=== PATIENT | female | born 1945 | race Caucasian/White ===

== ENCOUNTER 2025-07-20 14:35 | Inpatient (IN) ==
[2025-07-20] MEDS ORDERED: IPRATROPIUM/ALBUTEROL 3 ML AMPUL.NEB NEB PRN ×2 (15:46→18:13)
[2025-07-20] MEDS ORDERED: DEXTROSE 50% 50 ML VIAL IV PRN (15:46)
[2025-07-20] MEDS ORDERED: hydrALAZINE 20 MG/ML VIAL IV PRN (15:46)
[2025-07-20] MEDS ORDERED: KETOROLAC 30 MG/ML VIAL IV PRN (15:46)
[2025-07-20] MEDS ORDERED: ONDANSETRON 4 MG/2 ML VIAL IV PRN ×2 (15:46→18:13)
[2025-07-20] MEDS ORDERED: DEXTROSE 31 GM ORAL.SUSP PO PRN (15:46)
[2025-07-20 16:37] LABS: POC Blood Urea Nitrogen 16.0 (6-20); POC CO2 21.0 (22-30); POC Calcium, Ionized 1.08 (1.16-1.32); POC Glucose, Random 216.0 (70-105)
[2025-07-20] MEDS ORDERED: PROPOFOL 200 MG/20 ML VIAL IV ONE (16:46)
[2025-07-20] MEDS ORDERED: fentaNYL 100 MCG/2 ML VIAL ONE (16:46)
[2025-07-20] MEDS ORDERED: LIDOCAINE 2% PF 5 ML VIAL ONE (16:47)
[2025-07-20] MEDS ORDERED: ONDANSETRON 4 MG/2 ML VIAL ONE (16:47)
[2025-07-20] MEDS ORDERED: GLYCOPYRROLATE 0.2 MG/ML VIAL IV ONE (16:47)
[2025-07-20] MEDS ORDERED: DEXAMETHASONE 10 MG/ML VIAL ONE (16:47)
[2025-07-20] MEDS: PIPERACILLIN SODIUM/TAZOBACTAM 3.375 GM in DEXTROSE 5% IN WATER 50 ML IV ONE (17:18)
[2025-07-20] MEDS ORDERED: PHENYLephrine 1 MG/10 ML SYRINGE (ANEST) ONE (17:40)
[2025-07-20] MEDS: IOVERSOL 50 ML VIAL IV ONE (17:45)
[2025-07-20] MEDS: LIDOCAINE 2% URO-JET 10 ML JEL.PF.APP UR ONE (17:50)
[2025-07-20] MEDS ORDERED: fentaNYL 100 MCG/2 ML VIAL IV PRN (18:13)
[2025-07-20] MEDS: 0.9 % SODIUM CHLORIDE 1,000 ML IV SCH (18:52)
[2025-07-20] MEDS: LACTATED RINGERS 1,000 ML IV SCH (18:53)
[2025-07-20] MEDS: INSULIN LISPRO 1 UNIT/0.01 ML UNIT SQ SCH (18:53)
[2025-07-20] MEDS: SENNOSIDES 1 TABLET PO SCH (21:11)
[2025-07-20] MEDS: PIPERACILLIN SODIUM/TAZOBACTAM 3.375 GM in DEXTROSE 5% IN WATER 100 ML IV SCH (21:11)
[2025-07-20] MEDS: DOCUSATE SODIUM 100 MG CAPSULE PO SCH (21:11)
[2025-07-20] MEDS: 0.9 % SODIUM CHLORIDE 10 ML SYRINGE IV SCH (21:12)
[2025-07-21 07:14] LABS: Basophils # (Auto) 0.02 K/mcL (0.00-0.30); Basophils % (Auto) 0.1 % (0.0-2.0); Eosinophils # (Auto) 0 K/mcL (0.00-0.70); Eosinophils % (Auto) 0 % (0.0-7.0); Hematocrit 43.0 % (34.1-44.9); Hemoglobin 13.7 g/dL (11.2-15.7); Lymphocytes # (Auto) 1.13 K/mcL (1.50-4.80); Lymphocytes % (Auto) 7.4 % (15.5-49.0); Mean Corpuscular HGB Conc 31.9 g/dL (31.0-36.0); Monocytes # (Auto) 0.28 K/mcL (0.10-0.90); Monocytes % (Auto) 1.8 % (1.0-12.0); Neutrophils % (Auto) 90.3 % (38.0-78.0); Platelet Count 181 K/mcL (140-440); RBC 4.66 M/mcL (3.59-5.38); WBC 15.2 K/mcL (4.5-11.0)
[2025-07-21 07:42] LABS: Anion Gap 8.0 (8.0-16.0); Blood Urea Nitrogen 15 mg/dL (8-23); Calcium 8.2 mg/dL (8.6-10.4); Carbon Dioxide 23 mmol/L (22-30); Chloride 102 mmol/L (96-108); Glucose 266 mg/dL (70-105); Potassium 4.7 mmol/L (3.3-5.1); Sodium 133 mmol/L (133-145)
[2025-07-21 07:54] LABS: Estimated Average Glucose(eAG) 177 mg/dL; Hemoglobin A1C 7.8 % Hgb (4.0-6.0)
[2025-07-21] MEDS ORDERED: FLUOCINOLONE ACETONIDE TP PRN (10:54)
[2025-07-21] MEDS ORDERED: CONJUGATED ESTROGENS TOPICAL PRN (11:02)
[2025-07-21] MEDS: ACETAMINOPHEN 325 MG TABLET PO PRN (11:54)
[2025-07-21] MEDS: PIPERACILLIN SODIUM/TAZOBACTAM 4.5 GM in DEXTROSE 5% IN WATER 100 ML IV SCH (13:03)
[2025-07-21] MEDS: ATORVASTATIN 40 MG TABLET PO SCH (21:08)
[2025-07-22] MEDS: LEVOTHYROXINE 75 MCG TABLET PO SCH (07:25)
[2025-07-22 07:37] LABS: Anion Gap 7.0 (8.0-16.0); Blood Urea Nitrogen 16 mg/dL (8-23); Calcium 8.3 mg/dL (8.6-10.4); Carbon Dioxide 24 mmol/L (22-30); Chloride 104 mmol/L (96-108); Glucose 200 mg/dL (70-105); Potassium 4.4 mmol/L (3.3-5.1); Sodium 135 mmol/L (133-145)
[2025-07-22] MEDS: ENOXAPARIN 40 MG/0.4 ML SYRINGE SQ SCH (09:42)
[2025-07-22 10:30] LABS: Basophils # (Auto) 0.03 K/mcL (0.00-0.30); Basophils % (Auto) 0.2 % (0.0-2.0); Eosinophils # (Auto) 0.02 K/mcL (0.00-0.70); Eosinophils % (Auto) 0.1 % (0.0-7.0); Hematocrit 42.1 % (34.1-44.9); Hemoglobin 13.9 g/dL (11.2-15.7); Lymphocytes # (Auto) 1.66 K/mcL (1.50-4.80); Lymphocytes % (Auto) 10.7 % (15.5-49.0); Mean Corpuscular HGB Conc 33.0 g/dL (31.0-36.0); Monocytes # (Auto) 1.05 K/mcL (0.10-0.90); Monocytes % (Auto) 6.8 % (1.0-12.0); Neutrophils % (Auto) 81.7 % (38.0-78.0); Platelet Count 208 K/mcL (140-440); RBC 4.59 M/mcL (3.59-5.38); WBC 15.6 K/mcL (4.5-11.0)
[2025-07-23 06:34] LABS: Anion Gap 7.0 (8.0-16.0); Blood Urea Nitrogen 15 mg/dL (8-23); Calcium 7.9 mg/dL (8.6-10.4); Carbon Dioxide 23 mmol/L (22-30); Chloride 108 mmol/L (96-108); Glucose 184 mg/dL (70-105); Potassium 4.4 mmol/L (3.3-5.1); Sodium 138 mmol/L (133-145)
[2025-07-23 06:41] LABS: Basophils # (Auto) 0.02 K/mcL (0.00-0.30); Basophils % (Auto) 0.2 % (0.0-2.0); Eosinophils # (Auto) 0.26 K/mcL (0.00-0.70); Eosinophils % (Auto) 3.2 % (0.0-7.0); Hematocrit 41.4 % (34.1-44.9); Hemoglobin 13.1 g/dL (11.2-15.7); Lymphocytes # (Auto) 1.93 K/mcL (1.50-4.80); Lymphocytes % (Auto) 23.9 % (15.5-49.0); Mean Corpuscular HGB Conc 31.6 g/dL (31.0-36.0); Monocytes # (Auto) 0.84 K/mcL (0.10-0.90); Monocytes % (Auto) 10.4 % (1.0-12.0); Neutrophils % (Auto) 62.2 % (38.0-78.0); Platelet Count 201 K/mcL (140-440); RBC 4.48 M/mcL (3.59-5.38); WBC 8.1 K/mcL (4.5-11.0)
[2025-07-24 06:49] LABS: Anion Gap 8.0 (8.0-16.0); Blood Urea Nitrogen 11 mg/dL (8-23); Calcium 8.2 mg/dL (8.6-10.4); Carbon Dioxide 26 mmol/L (22-30); Chloride 105 mmol/L (96-108); Glucose 161 mg/dL (70-105); Potassium 4.3 mmol/L (3.3-5.1); Sodium 139 mmol/L (133-145)
[2025-07-24 06:50] LABS: Basophils # (Auto) 0.03 K/mcL (0.00-0.30); Basophils % (Auto) 0.4 % (0.0-2.0); Eosinophils # (Auto) 0.35 K/mcL (0.00-0.70); Eosinophils % (Auto) 4.5 % (0.0-7.0); Hematocrit 41.9 % (34.1-44.9); Hemoglobin 13.4 g/dL (11.2-15.7); Lymphocytes # (Auto) 1.86 K/mcL (1.50-4.80); Lymphocytes % (Auto) 23.8 % (15.5-49.0); Mean Corpuscular HGB Conc 32.0 g/dL (31.0-36.0); Monocytes # (Auto) 0.72 K/mcL (0.10-0.90); Monocytes % (Auto) 9.2 % (1.0-12.0); Neutrophils % (Auto) 61.7 % (38.0-78.0); Platelet Count 211 K/mcL (140-440); RBC 4.60 M/mcL (3.59-5.38); WBC 7.8 K/mcL (4.5-11.0)
[2025-07-24 11:23] VITALS: TEMP 98.8; O2SAT 98
== END 2025-07-24 13:23 | disposition home or self-care (01) | DRG 854 ==
LOC: MEDSUR 15:30
PROVIDERS: ADMIT Internal Medicine; ATTEND Internal Medicine